=== PATIENT | female | born 1975 | race Caucasian/White ===

== ENCOUNTER 2018-02-24 22:52 | Emergency (ER) | payer BC ==
[2018-02-24 23:07] VITALS: BP 129/78; PULSE 78; TEMP 98.1
[2018-02-24] MEDS ORDERED: ACETAMINOPHEN 1000 MG/100 ML VIAL (NON FORMULARY) IVPB ONE (23:10)
[2018-02-24] MEDS ORDERED: SODIUM CHLORIDE 0.9% 1000 ML INFUS.BAG IV ONE (23:10)
[2018-02-24] MEDS ORDERED: METOCLOPRAMIDE HCL INJECTION 10 MG/2 ML VIAL IVPUSH ONE (23:10)
--- NOTE | 2018-02-24 23:10 | PDOC ---
History of Present Illness - General Chief Complaint: Difficulty with Vision Stated Complaint: FATIGUE Time Seen by Provider: 02/24/18 23:02 - History of Present Illness Initial Comments: 02/24/18 23:26 42yo female with a hx of migraines presents to the ED for eval of seeing bright spots in her eyes b/l and R head pressure. Pt states she has not had a migraine since the . States she saw bright lights in the eyes that has since been improving. Symptoms started about 30min prior to arrival. States after the spots in the eyes and the weiss she became nervous and came in for further eval. Pt denies paresthesias. No weakness. No loss of vision. No ttp over temples. Pt states she became nauseated with the weiss. Pt denies vomiting. No neck pain. No cp /sob. No abd pain. No diarrhea. Denies sore throat or rhinorrhea. No recent illness or travel. No dysuria. Pt denies vaginal or urinary complaints. PMHx: migraines PShx: bunionectomy no home meds allergies gluten and dairy 02/25/18 01:28 Past History - Past Medical History Allergies/Adverse Reactions: Allergies Allergy/AdvReac Type Severity Reaction Status Date / Time gluten AdvReac Verified 09/28/14 22:52 DAIRY Allergy Mild Vomiting Uncoded 09/28/14 22:52 Home Medications: Ambulatory Orders Ondansetron [Zuplenz] 8 mg PO BID PRN 09/28/14 Anemia: Yes Asthma: No Cancer: No Cardiac Disorders: No CVA: No COPD: No CHF: No Dementia: No Diabetes: No GI Disorders: No Disorders: No HTN: No Hypercholesterolemia: No Liver Disease: No Seizures: No Thyroid Disease: No Other medical history: migraines - Surgical History Abdominal Surgery: No Appendectomy: No Cardiac Surgery: No Cholecystectomy: No Lung Surgery: No Neurologic Surgery: No Orthopedic Surgery: Yes (BUNIONECTOMY LEFT) - Immunization History Td Vaccination: No TDAP Vaccination: No Immunization Up to Date: No - Suicide/Smoking/Psychosocial Hx Smoking Status: No Smoking History: Never smoked Have you smoked in the past 12 months: No Number of Cigarettes Smoked Daily: 0 Information on smoking cessation initiated: No Hx Alcohol Use: No Drug/Substance Use Hx: No Substance Use Type: None Hx Substance Use Treatment: No Review of Systems - Review of Systems Able to Perform ROS?: Yes Is the patient limited Divehi proficient: No Constitutional: No: Chills, Fever HEENTM: Yes: Blurred Vision, Recent change in vision, Other (seeing bright lights). No: Eye Pain, Ear Pain, Nose Pain, Nose Congestion, Throat Pain Respiratory: No: Cough, Shortness of Breath Cardiac (ROS): No: Chest Pain ABD/GI: Yes: Nausea. No: Diarrhea, Vomiting, Abdominal cramping : No: Burning, Dysuria Musculoskeletal: No: Back Pain, Neck Pain Integumentary: No: Rash Neurological: Yes: Headache. No: Numbness, Paresthesia, Tingling, Tremors, Weakness, Ataxia, Dizziness All Other Systems: Reviewed and Negative *Physical Exam - Vital Signs Last Vital Signs Temp Pulse Resp BP Pulse Ox 98.1 F 78 20 129/78 98 02/24/18 23:03 02/24/18 23:03 02/24/18 23:03 02/24/18 23:03 02/24/18 23:03 - Physical Exam General Appearance: Yes: Nourished, Appropriately Dressed, Other (appears uncomfortable) HEENT: positive: EOMI, ANGIE, Normal Voice, Pharynx Normal, Other (peripheral vision intact) Neck: positive: Supple. negative: Tender, Rigid, Lymphadenopathy (R), Lymphadenopathy (L), Tender lateral, Tender midline Respiratory/Chest: positive: Lungs Clear, Normal Breath Sounds. negative: Chest Tender, Respiratory Distress Cardiovascular: positive: Regular Rhythm, Regular Rate, S1, S2 Gastrointestinal/Abdominal: positive: Normal Bowel Sounds, Flat, Soft. negative : Tender, Guarding, Rebound, Tenderness Lymphatic: negative: Adenopathy Musculoskeletal: positive: Normal Inspection. negative: CVA Tenderness Extremity: positive: Normal Capillary Refill, Normal Inspection, Normal Range of Motion. negative: Swelling, Calf Tenderness Integumentary: positive: Normal Color, Dry, Warm Neurologic: positive: software release engineer II-XII NML intact, Fully Oriented, Alert, Normal Mood/ Affect, Normal Response, Motor Strength 5/5 ED Treatment Course - LABORATORY CBC & Chemistry Diagram: 02/24/18 23:35 02/24/18 23:35 Medical Decision Making - Medical Decision Making 02/24/18 23:36 a/p: 42yo female with R sided weiss and bright light to eyes affecting vision -suspect ocular migraine, however will obtain head ct given that patient has not had a migraine since the -will send labs -vision is currently back to normal - pressure to right head assoc with nausea -will send ua, ucg -will medicate with reglan, ivf, iv tylenol -will monitor and reassess 02/24/18 23:38 re-eval: still with small amount of head pressure, vision is back to normal 02/25/18 01:22 plts 67 - hx of ITP - no bleeding at this time labs reviewed - will replace potassium -pt heading to head ct now 02/25/18 01:26 pt states she follow up yesterday for her ITP - plts were 70 yesterday - no recent bleeding -discussed potassium replacement - states she understands replacement. pt states weiss resolved at this time. 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 *DC/Admit/Observation/Transfer Diagnosis at time of Disposition: Cephalgia, Thrombocytopenia - Discharge Dispostion Disposition: HOME Condition at time of disposition: Stable Decision to Admit order: No - Referrals Referrals: Jtet Finney MD [Primary Care Provider] - Osiel Montaño MD [Staff Physician] - Kristofer Frankel MD [Staff Physician] - - Patient Instructions Printed Discharge Instructions: DI for Headache Additional Instructions: Please follow up with both the neurologist and the ophthomologist in the next 2- 3 days. Please return to the ED with any further concerns or complaints. Please follow up with your PMD in 2-3 days. - Post Discharge Activity - Attestations Physician Attestion: 02/25/18 01:27 I, Dr. Bessie Herring, DO, attest that this document has been prepared under my direction and personally reviewed by me in its entirety. I further attest, that it accurately reflects all work, treatment, procedures and medical decision -making performed by me.
[2018-02-25 00:02] LABS: EOS % 1.4 % (0-4.5); HEMATOCRIT 35.5 % (32.4-45.2); HEMOGLOBIN 11.4 GM/dL (10.7-15.3); LYMPH % 37.6 % (8-40); MCH 25.6 pg (25.7-33.7); MCHC 32.2 g/dl (32.0-36.0); MEAN CELL VOLUME 79.7 fl (80-96); MEAN PLT VOLUME 16.3 fl (7.5-11.1); MONO % 7.5 % (3.8-10.2); NEUT % 52.5 % (42.8-82.8); PLATELET COUNT 67 K/MM3 (134-434); RBC 4.45 M/mm3 (3.60-5.2); RDW 14.7 % (11.6-15.6); WHITE BLOOD COUNT 5.8 K/mm3 (4.0-10.0)
[2018-02-25 00:08] LABS: URINE APPEARANCE CLEAR; URINE BILIRUBIN NEGATIVE (<2.0 mg/dL); URINE COLOR STRAW; URINE GLUCOSE (UA) NEGATIVE (NEGATIVE); URINE KETONE NEGATIVE (NEGATIVE); URINE LEUK ESTERASE NEGATIVE (NEGATIVE); URINE NITRITE NEGATIVE (NEGATIVE); URINE PROTEIN NEGATIVE (NEGATIVE); URINE UROBILINOGEN NEGATIVE mg/dL (0.2-1.0)
[2018-02-25 00:13] LABS: HCG,QUALITATIVE URINE NEGATIVE
[2018-02-25] MEDS ORDERED: METOCLOPRAMIDE HCL INJECTION 10 MG/2 ML VIAL ONE (00:17)
[2018-02-25 00:29] LABS: ALBUMIN 3.8 g/dl (3.4-5.0); ANION GAP 8 (8-16); BILIRUBIN,TOTAL 0.4 mg/dL (0.2-1.0); BLOOD UREA NITROGEN 12 mg/dL (7-18); CALCIUM 8.6 mg/dL (8.5-10.1); CHLORIDE 104 mmol/L (98-107); CO2 28 mmol/L (21-32); GLUCOSE,RANDOM 88 mg/dL (74-106); MAGNESIUM 2.3 mg/dL (1.8-2.4); POTASSIUM 3.4 mmol/L (3.5-5.1); SGOT/AST 18 U/L (15-37); SGPT/ALT 21 U/L (12-78); SODIUM 140 mmol/L (136-145); TOT PROT 7.2 g/dl (6.4-8.2)
[2018-02-25 00:30] LABS: ALK PHOS 65 U/L (45-117)
[2018-02-25 01:16] LABS: PLATELET ESTIMATE MOD DECREASED
[2018-02-25] MEDS ORDERED: POTASSIUM CHLORIDE TABS 20 MEQ TABLET.ER (FP) PO ONE ×2 (01:20→01:41)
== END 2018-02-25 02:07 | disposition home or self-care (01) ==
LOC: JER 22:52
PROC: 3E033NZ Introduction of Analgesics, Hypnotics, Sedatives into Peripheral Vein, Percutaneous Approach (ICD-10-PCS; principal; 2018-02-24)
PROC: 3E033GC Introduction of Other Therapeutic Substance into Peripheral Vein, Percutaneous Approach (ICD-10-PCS; 2018-02-24)
DX: R51 Headache (principal); D69.6 Thrombocytopenia, unspecified; Z86.69 Personal history of other diseases of the nervous system and sense organs
CPT/HCPCS: 36415; 70450-TC; 80053; 81003; 83735; 84703; 85025; 85730; 99281-25; J0131; J7030

== ENCOUNTER 2022-02-18 12:13 | Emergency (ER) | payer BC ==
[2022-02-18 12:25] VITALS: BP 148/101; PULSE 98; TEMP 97.7; BMI 25.7
== END 2022-02-18 13:45 | disposition left against medical advice (07) ==
LOC: JER 12:13
DX: R11.2 Nausea with vomiting, unspecified (principal); R55 Syncope and collapse
CPT/HCPCS: 93005; 93010; 99281-25